=== PATIENT | female | born 1955 | race Two or more races ===

== ENCOUNTER 2017-12-24 17:18 | Emergency (ER) | payer OTHER ==
[~2017-12-24] VITALS: Ht 154.9 cm; Wt 72.6 kg
[2017-12-24] MEDS ORDERED: ANASTROZOLE1 MG PO (18:11)
== END 2017-12-24 23:28 | disposition home or self-care (01) ==
LOC: ER 17:18
DX: K52.9 Noninfective gastroenteritis and colitis, unspecified (principal); R51 Headache; I10 Essential (primary) hypertension